=== PATIENT | male | born 1955 | race Caucasian/White ===

== ENCOUNTER → 2018-02-10 | Outpatient (CLI) | payer OTHER ==
[2015-09-21 13:57] VITALS: BP 148/78
[~2018-02-10] MED LIST: ASPI-482 PO; Amoxicillin/Potassium Clav PO; FLUT1DIS IH; Guaifenesin/Dextromethorphan PO; LISI20TA PO; LOSA1TAB19 PO; MELA3TAB2 PO; NALT1TAB PO; PRAV20TA2 PO; TAMS0.4C2 PO; Warfarin Sodium MC; advair
== END | disposition home or self-care (01) ==
LOC: PF 07:23
PROVIDERS: ATTEND Neuromusculoskeletal Medicine, Sports Medicine
DX: J45.998 Other asthma (principal)
CPT/HCPCS: 94010

== ENCOUNTER → 2018-04-12 | Outpatient (CLI) | payer OTHER, BC ==
[2015-09-21 13:57] VITALS: BP 148/78
--- NOTE | 2018-04-12 10:50 | RAD ---
EXAM: Left knee, 2 views. HISTORY: Pain. COMPARISON: None. FINDINGS: 2 views of the left knee are obtained. There is medial compartment joint space narrowing and subchondral sclerosis. There is moderate medial and mild lateral and patellofemoral compartment spurring. There is suspected slight genu varus. There is no joint effusion. There is a benign osseous excrescence along the posterior aspect of the proximal tibial diaphysis, measuring approximately 5.0 cm. IMPRESSION: 1. Moderate to severe medial compartment and mild lateral and patellofemoral compartment osteoarthritis of the left knee with suspected slight genu varus. 2. Benign osseous excrescence along the posterior aspect of the proximal tibial diaphysis. 3. No acute osseous finding. Electronically signed by: María Elena Meek MD (04/12/2018 10:45 AM) [email or web address]
--- NOTE | 2018-04-12 10:54 | RAD ---
EXAM: Lumbar spine, 2 views. HISTORY: Pain. COMPARISON: None. FINDINGS: 2 views of the lumbar spine are obtained. There is no significant listhesis. There is degenerative endplate remodeling predominantly along the anterior superior aspect of L2. There is facet arthropathy at the lumbosacral junction. IMPRESSION: 1. Multilevel degenerative change, primarily at L1-L2. 2. No acute osseous finding. Electronically signed by: María Elena Meek MD (04/12/2018 10:49 AM) [email or web address]
== END | disposition home or self-care (01) ==
LOC: RAD 09:06
PROVIDERS: ATTEND Surgery
DX: M17.12 Unilateral primary osteoarthritis, left knee (principal); M47.816 Spondylosis without myelopathy or radiculopathy, lumbar region; E66.01 Morbid (severe) obesity due to excess calories
CPT/HCPCS: 72100; 73560

== ENCOUNTER → 2020-05-25 | Outpatient (CLI) | payer BC, MEDICARE ==
[2015-09-21 13:57] VITALS: BP 148/78
[~2020-05-25] MED LIST changes: -MELA3TAB2 PO; +MELA3TAB4 PO
--- NOTE | 2020-05-25 16:20 | KCIC ---
XR CHEST 2V History: Reason: SHORTNESS OF BREATH / Spl. Instructions: New onset of shortness of breath in last 2 weeks. / History: Comparison: None. Technique: PA and lateral chest radiographs. Findings: The lungs are adequately and symmetrically inflated. Mild prominence of interstitial markings. No foc al airspace consolidation. Small left pleural effusion.. Cardiomediastinal silhouette and pulmonary v asculature are within normal limits. Osseous structures and soft tissues are unremarkable. Impression: 1. Small left pleural effusion. Electronically signed by: Alfred Garcia MD (05/25/2020 4:18 PM) [facility]
== END ==
LOC: KCIC 09:51
PROVIDERS: ATTEND Family Medicine
DX: J90 Pleural effusion, not elsewhere classified (principal)
CPT/HCPCS: 71046

== ENCOUNTER → 2021-01-07 | Outpatient (CLI) | payer BC, MEDICARE ==
[2015-09-21 13:57] VITALS: BP 148/78
--- NOTE | 2021-01-07 17:23 | RAD ---
EXAM: AP, lateral and lumbosacral spot views of the lumbar spine DATE: 01/07/2021 4:23 PM INDICATION: LUMBAR BACK PAIN. COMPARISON: No Prior FINDINGS: Vertebral body heights are preserved. Mild L5-S1 disc height loss. Mild L4-5 and L5-S1 facet degenera tive change. No spondylolisthesis. Brachytherapy seeds are seen within the prostate. Moderate to large volume colonic stool is partially profiled. IMPRESSION: 1. Mild degenerative change at multiple levels as above 2. Negative acute fracture or subluxation. Electronically signed by: Tray Valenzuela MD (01/07/2021 5:20 PM) [id number]
== END ==
LOC: RAD 15:54
PROVIDERS: ATTEND Family Medicine
DX: M47.817 Spondylosis without myelopathy or radiculopathy, lumbosacral region (principal); M51.37 Other intervertebral disc degeneration, lumbosacral region; Z92.3 Personal history of irradiation
CPT/HCPCS: 72100

== ENCOUNTER 2021-01-11 08:02 | Emergency (ER) | payer BC ==
[~2021-01-11] VITALS: Ht 170.2 cm; Wt 235.0 kg
--- NOTE | 2021-01-11 08:37 | PHYS DOC ---
Past Medical History Past Medical History: Hypertension, Other Additional Past Medical Histor: heart murmur Past Surgical History: Gastric Bypass Additional Past Surgical Histo: testicle resection as a child Smoking Status: Never Smoker Alcohol Use: None Drug Use: None General Adult EDM: Chief Complaint: CONSTIPATION HPI: HPI: Patient is a 65 year old male who is here for constipation x2 weeks. He is passing some gas. He reports having only 3 or 4 hard, small bowel movements. He recently underwent gastric sleeve surgery for weight loss. He is not routinely taking any stool softeners, fiber supplements or laxatives. He took MiraLAX for several days, over a week ago. He has taken one laxative. He is not taking any stool softeners. He is drinking some fluids, though not eating nearly as much as he previously had. He is complaining of some left-sided abdominal pain and cramping. He denies urinary symptoms. He denies fevers or chills. He denies nausea or vomiting or anorexia. He has not reached out to his surgeon or primary care physician for this. No acute changes reported today. No previous history of any bowel obstructions. Review of Systems: Review of Systems: Constitutional: Denies fever or chills. [] Respiratory: Denies cough or shortness of breath. [] Cardiovascular: Denies chest pain or edema. [] GI: Left-sided abdominal discomfort, constipation. Denies nausea or vomiting or diarrhea. : Denies urinary symptoms. Musculoskeletal: Tonic and unchanged back pain reported. Integument: Denies rash. [] Neurologic: Denies headache, focal weakness or sensory changes. [] Psychiatric: Denies depression or anxiety. [] Heart Score: C/O Chest Pain: No Risk Factors: Risk Factors: DM, Current or recent (<one month) smoker, HTN, HLP, family history of CAD, obesity. Risk Scores: Score 0 - 3: 2.5% MACE over next 6 weeks - Discharge Home Score 4 - 6: 20.3% MACE over next 6 weeks - Admit for Clinical Observation Score 7 - 10: 72.7% MACE over next 6 weeks - Early Invasive Strategies Allergies: Allergies: Allergies Coded Allergies Type Severity Reaction Last Updated Verified No Known Drug Allergies 01/11/21 No Physical Exam: PE: Constitutional: Well developed, well nourished, no acute distress, non-toxic appearance. [] HENT: Normocephalic, atraumatic, mucous membranes are moist. Eyes: Sclera are clear and anicteric Cardiovascular:Heart rate regular rhythm Lungs & Thorax: Bilateral breath sounds clear to auscultation [] Abdomen: Abdomen is markedly obese, soft, nondistended, normal bowel sounds are noted. Incisions are clean, dry, intact, well-healed appearing. No warmth or erythema. Very minimal left lower quadrant tenderness to palpation. No rebound tenderness, no guarding. No CVA tenderness. No flank or abdominal ecchymoses. Skin: Warm, dry, no erythema, no rash. [] Back: No tenderness, no CVA tenderness. [] Extremities: No deformity. Bilateral lower extremity lymphedema, no calf tenderness. Neurologic: Alert and oriented X 3, normal motor function, normal sensory function, no focal deficits noted. [] Psychologic: Affect is flat, he is cooperative. [] Current Patient Data: Vital Signs: Vital Signs Date Time Temp Pulse Resp B/P (MAP) Pulse Ox O2 Delivery O2 Flow Rate FiO2 01/11/21 08:06 97.9 102 25 183/82 (115) 94 Room Air 97.9 EKG: EKG: [] Radiology/Procedures: Radiology/Procedures: IMAGING REPORT Signed PATIENT: DILSHAD SPRAGUE ACCOUNT: [id number] : 1955 LOCATION: ER AGE: 65 SEX: M EXAM STATUS: REG ER ORD. PHYSICIAN: ADIS VALENCIA DO REASON: abdominal pain, constipation PROCEDURE: CT ABDOMEN PELVIS WO CONTRAST EXAM: CT Abdomen and Pelvis without IV contrast CLINICAL HISTORY: abdominal pain, constipation COMPARISON: none TECHNIQUE: Helical CT of the abdomen and pelvis without intravenous contrast. Axial, coronal and sagittal reformatted images were generated. PQRS compliance statement - One or more of the following individualized dose reduction techniques were utilized for this study: 1. Automated exposure control 2. Adjustment of the mA and/or kV according to patient size 3. Use of iterative reconstruction technique FINDINGS: Lack of intravenous contrast limits evaluation of solid organs, vasculature, and lymph nodes. Additionally exam is limited given suboptimal tissue penetration of the CT beam. Lower chest: Linear and patchy opacities left lower lobe likely scarring/atelectasis. No pleural effusion. Coronary calcifications. Abdomen and Pelvis: No focal liver lesion. Liver is enlarged measuring 19 cm in length. High density material within the gallbladder likely sludge. No biliary ductal dilatation. Pancreas is unremarkable. Spleen is normal in appearance. Adrenal glands are unremarkable. High density material in the renal calculi bilaterally, possibly from prior contrast administration. Moderate colonic stool content is seen. Appendix is not seen. Fluid distention of the colon. No small or large bowel dilatation. No bowel obstruction. Brachytherapy seeds are seen within the prostate. Changes of gastric bypass are seen. Bones: Evaluation of the osseous structures is significantly limited given given suboptimal radiographic penetration. Likely acute fractures of the posterior ninth-11th ribs at the left costophrenic angle. IMPRESSION: 1. Moderate colonic stool content can be correlated for possible constipation. No bowel obstruction. 2. Dependent opacities left lower lobe likely scarring or atelectasis. 3. Hepatomegaly. 4. Likely acute fractures of the left posterior ninth-11th ribs at the costophrenic angle although limited CT beam penetration significantly limits evaluation. This can be correlated with patient's symptoms. Electronically signed by: Tray Auguste MD (01/11/2021 11:42 AM) [id number] DICTATED and SIGNED BY: TRAY AUGUSTE MD DATE: 01/11/21 [id number] 0 Course & Med Decision Making: Course & Med Decision Making Pertinent Labs and Imaging studies reviewed. (See chart for details) The patient is given IV fentanyl and IV fluids here. I initially ordered an CT abdomen pelvis with IV contrast, but his IV blew when he was in CT. He had to be taken back into his room, as another patient required a biopsy to be performed on the larger CT, so there was a delay in him obtaining the noncontrasted CT. I did apologize for the wait. CT does not demonstrate any evidence of bowel obstruction. He did provide a urine sample. The nurse walked the urine down to the lab. The lab was called, as the UA was not resulted for quite some time. And the lab staff reported that they had apparently lost the sample. The patient does not wish to stay for repeat urine. He has no urinary symptoms. I did discuss, in great detail, specific instructions for a bowel regimen at home to help with constipation. He has stopped taking opioid medication, which I explained to him will help with constipation. I told him to take twice a day stool softeners, daily MiraLAX, drink plenty of fluids, I recommend a fiber supplement as well. I told him to contact his bariatric surgeon for follow-up as well. No indication for further imaging, invasive exams or admission at this time. Return precautions are given. Dragon Disclaimer: Dragon Disclaimer: This electronic medical record was generated, in whole or in part, using a voice recognition dictation system. Departure Departure Impression: Primary Impression: Constipation Disposition: HOME / SELF CARE / HOMELESS Condition: STABLE Referrals: Grace HARDWICK MD (PCP) Patient Instructions: Constipation, Adult Additional Instructions: Please take pzzz-fxq-[id number] docusate sodium twice per day, make sure you drink plenty of water with this. Take daily MiraLAX. Make sure you use some [id number] fiber tablets or fiber Gummies daily as well. Make sure you eat a high-fiber diet, drink plenty of fluids/water. Return for more severe abdominal pain, fever 100.4 or higher, uncontrolled vomiting, dehydration, or any other concerns. Please contact your bariatric surgeon and primary care physician for follow-up. ADIS VALENCIA DO Jan 11, 2021 08:37
[2021-01-11] MEDS ORDERED: fentaNYL PF VIAL 100 MCG/2 ML VIAL IVP ONE (09:00)
[2021-01-11] MEDS ORDERED: IV NORMAL SALINE 1000ML BAG 1,000 ML IV ONE (09:00)
[2021-01-11] MEDS ORDERED: ONDANSETRON PF 4 MG/2 ML VIAL. IVP ONE (09:00)
[2021-01-11 09:11] LABS: BASO % 0 % (0-3); EOS # 0.2 x10^3/uL (0.0-0.7); EOS % 1 % (0-3); HEMATOCRIT 39.1 % (39.0-53.0); HEMOGLOBIN 12.5 g/dL (13.0-17.5); LYMPH # 0.7 x10^3/uL (1.0-4.8); LYMPH % 5 % (24-48); MEAN CORPUSCULAR HEMOGLOBIN 28 pg (25-35); MEAN CORPUSCULAR HGB CONC 32 g/dL (31-37); MEAN CORPUSCULAR VOLUME 86 fL (79-100); MONO # 1.1 x10^3/uL (0.0-1.1); MONO % 8 % (0-9); NEUT # 11.6 x10^3/uL (1.8-7.7); NEUT % 86 % (31-73); PLATELET COUNT 415 x10^3/uL (140-400); RED BLOOD COUNT 4.54 x10^6/uL (4.30-5.70); RED CELL DISTRIBUTION WIDTH 17.2 % (11.5-14.5); WHITE BLOOD COUNT 13.5 x10^3/uL (4.0-11.0)
[2021-01-11 09:21] LABS: CREATININE 0.8 mg/dL (0.7-1.3); POTASSIUM 4.2 mmol/L (3.5-5.1)
[2021-01-11 09:27] LABS: ALBUMIN 2.8 g/dL (3.4-5.0); ALBUMIN/GLOBULIN RATIO 0.6 (1.0-1.7); TOTAL BILIRUBIN 0.5 mg/dL (0.2-1.0); TOTAL PROTEIN 7.2 g/dL (6.4-8.2)
[2021-01-11] MEDS ORDERED: IOHEXOL 300 MG/ML 100ML VIAL. IV ONE (09:30)
[2021-01-11] MEDS ORDERED: CONTRAST GIVEN. MC PRN (09:30)
[2021-01-11 09:40] LABS: % EOS 1 % (0-5); % LYMPHS 9 % (24-48); % METAS 1 % (0-0); % MONOS 5 % (0-10); % SEGS 78 % (35-66)
[2021-01-11 09:41] LABS: % BANDS 6 % (0-9); ANISOCYTOSIS SLIGHT; PLT ESTIMATE ADEQUATE (ADEQUATE)
--- NOTE | 2021-01-11 11:44 | RAD ---
EXAM: CT Abdomen and Pelvis without IV contrast CLINICAL HISTORY: abdominal pain, constipation COMPARISON: none TECHNIQUE: Helical CT of the abdomen and pelvis without intravenous contrast. Axial, coronal and sagi ttal reformatted images were generated. PQRS compliance statement - One or more of the following individualized dose reduction techniques wer e utilized for this study: 1. Automated exposure control 2. Adjustment of the mA and/or kV according to patient size 3. Use of iterative reconstruction technique FINDINGS: Lack of intravenous contrast limits evaluation of solid organs, vasculature, and lymph nodes. Additio gricelda exam is limited given suboptimal tissue penetration of the CT beam. Lower chest: Linear and patchy opacities left lower lobe likely scarring/atelectasis. No pleural effusion. Coronar y calcifications. Abdomen and Pelvis: No focal liver lesion. Liver is enlarged measuring 19 cm in length. High density material within the gallbladder likely sludge. No biliary ductal dilatation. Pancreas is unremarkable. Spleen is normal i n appearance. Adrenal glands are unremarkable. High density material in the renal calculi bilaterally, possibly from prior contrast administration. Moderate colonic stool content is seen. Appendix is not seen. Fluid distention of the colon. No small or large bowel dilatation. No bowel obstruction. Brachytherapy seeds are seen within the prostate. C hanges of gastric bypass are seen. Bones: Evaluation of the osseous structures is significantly limited given given suboptimal radiographic pen etration. Likely acute fractures of the posterior ninth-11th ribs at the left costophrenic angle. IMPRESSION: 1. Moderate colonic stool content can be correlated for possible constipation. No bowel obstruction. 2. Dependent opacities left lower lobe likely scarring or atelectasis. 3. Hepatomegaly. 4. Likely acute fractures of the left posterior ninth-11th ribs at the costophrenic angle although l imited CT beam penetration significantly limits evaluation. This can be correlated with patient's sym ptoms. Electronically signed by: Tray Valenzuela MD (01/11/2021 11:42 AM) [id number]
[2021-01-11 15:16] VITALS: BP 168/90
== END 2021-01-11 15:17 | disposition home or self-care (01) ==
LOC: ER 08:02
DX: K59.00 Constipation, unspecified (principal); I10 Essential (primary) hypertension; R16.2 Hepatomegaly with splenomegaly, not elsewhere classified; Z98.84 Bariatric surgery status
CPT/HCPCS: 74176; 80053; 83690; 85007; 85025; 96361; 96374; 96375; 99284; J2405; J3010; J7030; Q9967; 99285-25